=== PATIENT | female | born 1990 | race Hispanic/Latino ===

== ENCOUNTER 2018-03-05 08:28 | Emergency (ER) | payer MEDICAID ==
[2018-03-05 09:15] LABS: BASOPHILS % (AUTO) 0.6 % (0.0-5.0); HEMATOCRIT 40.7 % (36-48); LYMPHOCYTES % (AUTO) 37.4 % (21.0-51.0); MEAN CORPUSCULAR HEMOGLOBIN 33.9 pg (27.0-33.0); MEAN CORPUSCULAR HGB CONC 35.4 g/dL (32.0-36.0); MEAN CORPUSCULAR VOLUME 95.9 fL (79-99); MONOCYTES % (AUTO) 6.8 % (3.0-13.0); NEUTROPHILS % (AUTO) 51.2 % (40.0-77.0); NUCLEATED RED BLOOD CELLS 0.1 % (0.0-0.19); PLATELET COUNT (AUTO) 197 K/uL (130-400); RED BLOOD CELL COUNT(AUTO) 4.25 MIL/uL (4.00-5.50); RED CELL DISTRIBUTION WIDTH 12.3 % (11.0-15.5); WHITE BLOOD COUNT (AUTO) 7.2 K/uL (4.8-10.8)
[2018-03-05 09:28] LABS: CREATININE 0.7 mg/dL (0.5-1.5)
[2018-03-05 09:33] LABS: ALBUMIN 3.7 g/dL (3.5-5.0); BILIRUBIN,TOTAL 0.3 mg/dL (0.2-1.0); TOTAL PROTEIN, SERUM 7.4 g/dL (6.0-8.3)
== END 2018-03-05 11:01 | disposition home or self-care (01) ==
LOC: EDH 08:28
DX: O03.4 Incomplete spontaneous abortion without complication (principal)
CPT/HCPCS: 36415; 76801; 76817; 80053; 84702; 85025; 86900; 86901

== ENCOUNTER 2018-12-02 11:26 | Emergency (ER) | payer MEDICAID ==
[2018-12-02 11:58] LABS: BASOPHILS % (AUTO) 0.4 % (0.0-5.0); EOSINOPHILS % (AUTO) 1.7 % (0.0-8.0); HEMATOCRIT 40.1 % (36-48); LYMPHOCYTES % (AUTO) 23.6 % (21.0-51.0); MEAN CORPUSCULAR HEMOGLOBIN 33.7 pg (27.0-33.0); MEAN CORPUSCULAR HGB CONC 35.3 g/dL (32.0-36.0); MEAN CORPUSCULAR VOLUME 95.5 fL (79-99); MONOCYTES % (AUTO) 6.9 % (3.0-13.0); NEUTROPHILS % (AUTO) 67.4 % (40.0-77.0); PLATELET COUNT (AUTO) 210 K/uL (130-400); RED CELL DISTRIBUTION WIDTH 12.2 % (11.0-15.5)
[2018-12-02 11:59] LABS: APPEARANCE,URINE Clear (CLEAR); BILIRUBIN,URINE Negative (NEGATIVE); COLOR,URINE Yellow (YELLOW); GLUCOSE, URINE (UA) Negative (NEGATIVE); KETONES,URINE 15 mg/dL (NEGATIVE); LEUKOCYTE ESTERASE ,URINE Small (NEGATIVE); NITRATE,URINE Negative (NEGATIVE); OCCULT BLOOD,URINE Negative (NEGATIVE); PROTEIN,URINE Negative (NEGATIVE)
[2018-12-02 12:09] LABS: CREATININE 0.7 mg/dL (0.5-1.5); POTASSIUM 3.5 mmol/L (3.5-5.1)
[2018-12-02 12:14] LABS: ALBUMIN 3.9 g/dL (3.5-5.0); BILIRUBIN,TOTAL 0.5 mg/dL (0.2-1.0); TOTAL PROTEIN, SERUM 7.9 g/dL (6.0-8.3)
[2018-12-02] MEDS ORDERED: PROMETHAZINE HCL 25 MG/ML 1ML AMPULE IM ONE (12:18)
[2018-12-02 12:28] LABS: BACTERIA,URINE Rare /HPF (None Seen); RBC,URINE 0-1 /HPF (0-1); SQUAMOUS EPITHELIAL CELL,UR Moderate /HPF (0-2)
== END 2018-12-02 15:00 | disposition home or self-care (01) ==
LOC: EDH 11:26
DX: O21.0 Mild hyperemesis gravidarum (principal); Z3A.12 12 weeks gestation of pregnancy
CPT/HCPCS: 36415; 76801; 80053; 81001; 85025; 96365; 99284; J2550

== ENCOUNTER → 2020-02-10 | Outpatient (CLI) | payer MEDICAID, OTHER ==
[~2020-02-10] MED LIST: GADODIAMIDE 10 MMOL/20 ML VIAL IV ONE; PNV1TABL17 PO
== END | disposition home or self-care (01) ==
LOC: RAH 10:45
PROVIDERS: ATTEND Student in an Organized Health Care Education/Training Program
DX: D17.79 Benign lipomatous neoplasm of other sites (principal); D48.2 Neoplasm of uncertain behavior of peripheral nerves and autonomic nervous system
CPT/HCPCS: 72158; A9579